=== PATIENT | female | born 1955 | race Caucasian/White ===

== ENCOUNTER 2022-02-09 12:31 | Inpatient (IN) ==
[2022-02-09] MEDS ORDERED: Tdap (Boostrix) Vaccine 0.5 ML SYRINGE IM ONE (12:40)
[2022-02-09] MEDS ORDERED: *HR* FentaNYL (PF) 100 MCG/2 ML VIAL IVP ONE (12:56)
[2022-02-09 13:28] LABS: Basophils % 0.3 %; Eosinophils # 0.1 K/mcL (0.0-0.6); Eosinophils % 0.4 %; Hematocrit 42.2 % (35.3-44.9); Hemoglobin 13.8 g/dL (11.5-15.4); Immature Granulocytes % 1.4 % (0-4); Lymphocytes # 0.9 K/mcL (0.6-4.6); Lymphocytes % 6.7 %; Mean Corpuscular HGB Conc 32.7 g/dL (31.6-35.5); Mean Corpuscular Hemoglobin 31.7 pg (28.0-33.3); Mean Corpuscular Volume 96.8 fL (83.0-100.0); Mean Platelet Volume 9.8 fL (9.4-12.4); Monocytes # 0.8 K/mcL (0.0-1.3); Monocytes % 5.7 %; Platelet Count 233 K/mcL (140-400); Red Blood Count 4.36 M/mcL (3.82-4.97); Red Cell Distribution Width 12.4 % (11.5-14.5); Segmented Neutrophils % 85.5 %
[2022-02-09 13:48] LABS: Calcium 9.2 mg/dL (8.6-10.3); Potassium 3.9 mEq/L (3.5-5.1)
[2022-02-09] MEDS ORDERED: Ondansetron 4 MG/2 ML VIAL IVP PRN (14:12)
[2022-02-09] MEDS ORDERED: Naloxone 0.4 MG/ML INJ IVP PRN (14:12)
[2022-02-09] MEDS ORDERED: Melatonin 3 MG TABLET PO PRN (14:12)
[2022-02-09] MEDS ORDERED: MOM Conc 10 ML UD.LIQ PO PRN (14:12)
[2022-02-09] MEDS ORDERED: diazePAM 5 MG TABLET PO PRN (17:59)
[2022-02-09] MEDS: risperiDONE 1 MG TABLET PO SCH (21:47)
[2022-02-09] MEDS: BuPROPion SR (12 HR) 150 MG TABLET PO SCH (21:47)
[2022-02-09] MEDS: traZODone 50 MG TABLET PO SCH (21:47)
[2022-02-10 05:09] LABS: Basophils % 0.4 %; Eosinophils # 0.1 K/mcL (0.0-0.6); Eosinophils % 1.4 %; Hematocrit 40.1 % (35.3-44.9); Hemoglobin 13.1 g/dL (11.5-15.4); Immature Granulocytes % 0.6 % (0-4); Lymphocytes # 1.4 K/mcL (0.6-4.6); Lymphocytes % 14.7 %; Mean Corpuscular HGB Conc 32.7 g/dL (31.6-35.5); Mean Corpuscular Hemoglobin 31.4 pg (28.0-33.3); Mean Corpuscular Volume 96.2 fL (83.0-100.0); Monocytes # 0.8 K/mcL (0.0-1.3); Monocytes % 8.7 %; Platelet Count 202 K/mcL (140-400); Red Blood Count 4.17 M/mcL (3.82-4.97); Red Cell Distribution Width 12.4 % (11.5-14.5); Segmented Neutrophils % 74.2 %; White Blood Count 9.4 K/mcL (4.3-11.1)
[2022-02-10 05:18] LABS: Prothrombin Time 11.4 Seconds (9.4-12.1)
[2022-02-10 05:30] LABS: Calcium 9.2 mg/dL (8.6-10.3); Magnesium 1.5 mg/dL (1.6-2.6); Potassium 3.6 mEq/L (3.5-5.1)
[2022-02-10] MEDS: Ringers Solution, Lactated 1,000 ML IVC SCH ×2 (07:30→07:32)
[2022-02-10] MEDS: BuPROPion SR (12 HR) 150 MG TABLET PO SCH ×2 (08:58→21:37)
[2022-02-10] MEDS: FLUoxetine 20 MG CAPSULE PO SCH (08:58)
[2022-02-10] MEDS ORDERED: *HR* Propofol 200 MG/20 ML VIAL IVP ONE (12:54)
[2022-02-10] MEDS ORDERED: *HR* FentaNYL (PF) 100 MCG/2 ML VIAL ONE ×2 (12:54→16:56)
[2022-02-10] MEDS ORDERED: Lidocaine -MPF 2% 5 ML VIAL ONE (12:55)
[2022-02-10] MEDS ORDERED: CeFAZolin Syr 2,000MG/20 ML 2,000 MG/20 ML SYRINGE IVPB ONE (14:22)
[2022-02-10] MEDS ORDERED: Albuterol 2.5 MG/3 ML NEBULIZER IH PRN (14:22)
[2022-02-10] MEDS ORDERED: EPHEDrine 50 MG/ML VIAL ONE (15:03)
[2022-02-10] MEDS ORDERED: Tranexamic Acid 1,000 MG/10 ML VIAL ONE (15:20)
[2022-02-10] MEDS ORDERED: Ondansetron 4 MG/2 ML VIAL ONE (15:55)
[2022-02-10] MEDS ORDERED: Sugammadex Sodium 200 MG/2 ML VIAL IV ONE (16:05)
[2022-02-10] MEDS: risperiDONE 1 MG TABLET PO SCH (21:37)
[2022-02-10] MEDS: traZODone 50 MG TABLET PO SCH (21:37)
[2022-02-11] MEDS: CeFAZolin 2 GM/120 ML BAG IVPB SCH ×2 (00:27→08:32)
[2022-02-11] MEDS: Acetaminophen 325 MG TABLET PO PRN ×2 (00:42→08:33)
[2022-02-11 05:07] LABS: Bilirubin,Urine Negative (Negative); Blood,Urine Small (Negative); Clarity,Urine Clear (Clear); Color,Urine Light-Yellow (Yellow); Glucose,Urine (UA) Normal (Normal); Granular Casts,Urine Few per lpf (None Seen); Hyaline Casts,Urine Few per lpf (None Seen); Ketones,Urine 10 mg/dL (Negative); Leukocyte Esterase,Urine Negative (Negative); Mucus,Urine Few per lpf (None-Few); Nitrite,Urine Negative (Negative); Protein,Urine Negative (Neg-Trace); Specific Gravity,Urine 1.023 (1.010-1.025); Urobilinogen,Urine Normal (Normal); WBC,Urine 0-3 per hpf (0-3)
[2022-02-11 05:10] LABS: Basophils % 0.3 %; Eosinophils # 0.1 K/mcL (0.0-0.6); Eosinophils % 1.1 %; Hematocrit 33.7 % (35.3-44.9); Immature Granulocytes % 0.4 % (0-4); Lymphocytes # 0.8 K/mcL (0.6-4.6); Lymphocytes % 7.2 %; Mean Corpuscular HGB Conc 32.3 g/dL (31.6-35.5); Mean Corpuscular Hemoglobin 31.2 pg (28.0-33.3); Mean Corpuscular Volume 96.6 fL (83.0-100.0); Mean Platelet Volume 10.2 fL (9.4-12.4); Monocytes # 1.3 K/mcL (0.0-1.3); Monocytes % 11.5 %; Platelet Count 174 K/mcL (140-400); Red Blood Count 3.49 M/mcL (3.82-4.97); Red Cell Distribution Width 12.2 % (11.5-14.5); Segmented Neutrophils % 79.5 %; White Blood Count 11.3 K/mcL (4.3-11.1)
[2022-02-11 05:12] LABS: Hemoglobin 10.9 g/dL (11.5-15.4)
[2022-02-11 05:52] LABS: BUN/Creatinine Ratio 12 (6-26); Blood Urea Nitrogen 9 mg/dL (8-23); Calcium 8.2 mg/dL (8.6-10.3); Carbon Dioxide 30 mEq/L (23-29); Chloride 101 mEq/L (98-107); Glucose 120 mg/dL (70-105); Magnesium 1.4 mg/dL (1.6-2.6); Osmolality,Calculated 282 (280-300); Sodium 136 mEq/L (136-145)
[2022-02-11] MEDS: Aspirin Enteric Coated 325 MG Tablet PO SCH (08:33)
[2022-02-11] MEDS: BuPROPion SR (12 HR) 150 MG TABLET PO SCH ×2 (08:33→20:44)
[2022-02-11] MEDS: FLUoxetine 20 MG CAPSULE PO SCH (08:33)
[2022-02-11] MEDS: risperiDONE 1 MG TABLET PO SCH (20:44)
[2022-02-11] MEDS: traZODone 50 MG TABLET PO SCH (20:44)
[2022-02-12 08:05] LABS: Basophils % 0.4 %; Eosinophils # 0.3 K/mcL (0.0-0.6); Eosinophils % 3.2 %; Hematocrit 32.3 % (35.3-44.9); Hemoglobin 10.4 g/dL (11.5-15.4); Lymphocytes # 0.7 K/mcL (0.6-4.6); Lymphocytes % 7.3 %; Mean Corpuscular HGB Conc 32.2 g/dL (31.6-35.5); Mean Corpuscular Hemoglobin 31.1 pg (28.0-33.3); Mean Corpuscular Volume 96.7 fL (83.0-100.0); Mean Platelet Volume 10.3 fL (9.4-12.4); Monocytes % 11.2 %; Neutrophils # 7.1 K/mcL (1.6-8.9); Platelet Count 150 K/mcL (140-400); Red Blood Count 3.34 M/mcL (3.82-4.97); Red Cell Distribution Width 12.1 % (11.5-14.5); Segmented Neutrophils % 76.9 %; White Blood Count 9.3 K/mcL (4.3-11.1)
[2022-02-12 08:24] LABS: BUN/Creatinine Ratio 14 (6-26); Blood Urea Nitrogen 8 mg/dL (8-23); Calcium 8.3 mg/dL (8.6-10.3); Carbon Dioxide 33 mEq/L (23-29); Chloride 98 mEq/L (98-107); Glucose 108 mg/dL (70-105); Osmolality,Calculated 283 (280-300); Potassium 3.5 mEq/L (3.5-5.1); Sodium 137 mEq/L (136-145)
[2022-02-12] MEDS: Aspirin Enteric Coated 325 MG Tablet PO SCH (09:40)
[2022-02-12] MEDS: FLUoxetine 20 MG CAPSULE PO SCH (09:42)
[2022-02-12] MEDS: BuPROPion SR (12 HR) 150 MG TABLET PO SCH ×2 (09:43→19:51)
[2022-02-12] MEDS ORDERED: *HR* OxyCODONE/APAP 10/325 TABLET PO PRN (14:17)
[2022-02-12 17:23] LABS: Adenovirus Not Detected (Not Detect); Bordetella Pertussis Not Detected (Not Detect); Chlamydophila pneumoniae Not Detected (Not Detect); Coronavirus 229E Not Detected (Not Detect); Coronavirus HKU1 Not Detected (Not Detect); Coronavirus NL63 Not Detected (Not Detect); Coronavirus OC43 Not Detected (Not Detect); Human Metapneumovirus Not Detected (Not Detect); Human Rhinovirus/Enterovirus Not Detected (Not Detect); Influenza A Subtype 2009 H1 Not Detected (Not Detect); Influenza B Not Detected (Not Detect); Mycoplasma pneumoniae Not Detected (Not Detect); Parainfluenza Virus 1 Not Detected (Not Detect); Parainfluenza Virus 2 Not Detected (Not Detect); Parainfluenza Virus 3 Not Detected (Not Detect); Parainfluenza Virus 4 Not Detected (Not Detect); Respiratory Syncytial Virus Not Detected (Not Detect); SARS-CoV-2 Not Detected (Not Detect)
[2022-02-12] MEDS: risperiDONE 1 MG TABLET PO SCH (19:51)
[2022-02-12 23:01] VITALS: BP 103/52; PULSE 69; TEMP 98.7; O2SAT 97
== END 2022-02-13 03:27 | disposition other institution (70) | DRG 956 ==
LOC: EMEROOARM 12:31 → 4WAOSI 12:31 → SUATTDRO 13:41 → 4WAOSI 15:27 → SUATTDRO 02-10 15:34
PROVIDERS: ADMIT Internal Medicine; ATTEND Internal Medicine